=== PATIENT | female | born 1995 | race African-American/Black ===

== ENCOUNTER 2021-05-14 10:18 | Emergency (ER) | payer MEDICAID ==
[~2021-05-14] VITALS: Ht 162.6 cm; Wt 50.0 kg
[2021-05-14 10:56] VITALS: BP 116/73
--- NOTE | 2021-05-14 11:14 | PHYS DOC ---
Past Medical History Past Medical History: Other Additional Past Medical Histor: breast fibroids Past Surgical History: No Surgical History Smoking Status: Never Smoker Alcohol Use: None Drug Use: None Adult General Chief Complaint Chief Complaint: LACERATION/AVULSION HPI HPI The patient is a 25-year-old female who is otherwise healthy and his tetanus is not up-to-date. She presents for evaluation of a superficial 1.5 cm linear laceration to her left hand in the webspace between the thumb and second finger, dorsal aspect. Bleeding is controlled. Wound was sustained just prior to arrival when patient was trying to open a container of orange juice with a knife and cut herself. No other injury during the episode. No therapy for symptoms prior to arrival. Review of Systems Review of Systems A 12 point review of systems was completed and was negative except where noted in HPI above. Current Medications Current Medications Current Medications Medications (Trade) Dose Ordered Sig/Ignacio Start Time Stop Time Status Last Admin Dose Admin Diphtheria/ Tetanus/Acell Pertussis (Boostrix) 0.5 ml ONCE ONCE 05/14/21 11:15 05/14/21 11:16 DC 05/14/21 11:51 0.5 ML Ibuprofen (Motrin) 800 mg 1X ONCE 05/14/21 11:15 05/14/21 11:16 DC 05/14/21 11:19 800 MG Lidocaine/ Epinephrine (LIDOCAINE 1%-EPI 1:100,000 Multi-Dose) 20 ml 1X ONCE 05/14/21 11:15 05/14/21 11:16 DC 05/14/21 11:19 20 ML Allergies Allergies Allergies Coded Allergies Type Severity Reaction Last Updated Verified No Known Drug Allergies 02/24/16 No Physical Exam Physical Exam 25-year-old female appearing nontoxic and in no acute distress. Head is normocephalic and atraumatic. Neck is supple and nontender. Oropharynx is moist. Lungs are clear to auscultation at all stations. There is a normal S1 and S2 without rubs or gallops and capillary refill is appropriate, less than 2 seconds globally. Abdomen is soft, nontender nondistended. Skin is warm and dry without cyanosis, clubbing or edema. Psychiatrically, the patient demonstrates appropriate mood and affect and is alert. Evaluation of the left upper extremity is remarkable for a 1.5 cm linear superficial laceration to the dorsal aspect of the left hand in the webspace between the first and second digits. Wound is hemostatic. Extremity in question including all digits is neurovascularly intact distally with strength out of 5, sensation intact light touch in all nerve distributions, radial pulse 2+, capillary refill less than 2 seconds, hand warm and well-perfused. Current Patient Data Vital Signs Vital Signs Date Time Temp Pulse Resp B/P (MAP) Pulse Ox O2 Delivery O2 Flow Rate FiO2 05/14/21 10:56 98.1 72 16 116/73 (87) 98 Room Air 98.1 EKG EKG [] Radiology/Procedures Radiology/Procedures Indication: [L hand laceration] Procedure: The patient was placed in the appropriate position and lidocaine with epinephrine was instilled around the laceration. The area was then copiously washed out and disinfected. The laceration was closed with four 4-0 ethilon sutures. Total repaired wound length: 1.5cm The patient tolerated the procedure well. Complications: none. Course & Med Decision Making Course & Med Decision Making Laceration repaired with suture as per procedure note. Patient tolerated well. Tetanus updated. Will discharge home with ibuprofen for discomfort and instructions to return to care in 7 to 10 days for suture removal, or before that as needed. Patient understands that if she feels worse instead of better or develops other new symptoms of concern that she should return to the emergenc y department immediately for reevaluation. All questions are answered. Dragon Disclaimer Dragon Disclaimer This electronic medical record was generated, in whole or in part, using a voice recognition dictation system. Departure Departure Impression: Primary Impression: Laceration of left hand without complication, excluding fingers Disposition: 01 HOME / SELF CARE / HOMELESS Condition: IMPROVED Patient Instructions: Laceration Care, Adult Additional Instructions: Follow-up in 7 to 10 days for suture removal. Take an ibuprofen pill every 6 hours as needed for discomfort, with food to prevent stomach upset. You may apply Neosporin up to twice a day to prevent infection. Return to the emergency department right away for worsening symptoms of any kind or with any other new symptoms of concern. Scripts Ibuprofen (Ibu) 600 Mg Tablet 1 TAB PO Q6HRS for 7 Days, #28 TAB 0 Refills Prov: JEREMY SELF MD 05/14/21 Problem Qualifiers Primary Impression: Laceration of left hand without complication, excluding fingers Encounter type: initial encounter Qualified Codes: S61.412A - Laceration without foreign body of left hand, initial encounter JEREMY SELF MD May 14, 2021 11:14
[2021-05-14] MEDS ORDERED: IBUPROFEN 400 MG TABLET. PO ONE (11:15)
[2021-05-14] MEDS ORDERED: DIPHTH,PERTUSS(ACELL),TET TOX 0.5 ML DISP.SYRIN. VAX IM ONE (11:15)
[2021-05-14] MEDS ORDERED: LIDOCAINE 1%/EPI 1:100,000 20 ML VIAL. INJ ONE (11:15)
[2021-05-14] MEDS ORDERED: IBUP-571 PO (12:01)
== END 2021-05-14 12:07 | disposition home or self-care (01) ==
LOC: ER 10:18
DX: S61.412A Laceration without foreign body of left hand, initial encounter (principal); W26.0XXA Contact with knife, initial encounter; Y93.89 Activity, other specified; Y92.89 Other specified places as the place of occurrence of the external cause; Y99.8 Other external cause status
CPT/HCPCS: 12001; 90471; 90715; 99283; J3490

== ENCOUNTER 2021-05-24 12:50 | Emergency (ER) | payer MEDICAID ==
[~2021-05-24] VITALS: Ht 162.6 cm; Wt 52.0 kg
[~2021-05-24 12:50] MED LIST: IBUP-571 PO
[2021-05-24 12:58] VITALS: BP 117/52
[2021-05-24] MEDS ORDERED: PRED50TA PO ×2 (13:21→13:28)
--- NOTE | 2021-05-24 13:21 | PHYS DOC ---
Past Medical History Past Medical History: Other Additional Past Medical Histor: breast fibroids Past Surgical History: No Surgical History Smoking Status: Never Smoker Alcohol Use: None Drug Use: None General Adult EDM: Chief Complaint: ITCHING HPI: HPI: Patient is a 25-year-old female that presents today with rash. Patient states approximately 4 days ago she moved into in a car apartment complex that she had lived in as a child, and she started breaking out in a rash around her neck area and her upper chest area and her face, she said the rash itches. She states she has tried taking [id number] Benadryl for it and that has not helped curb the rash or help with the itching. Patient denies chest pain, shortness of air, throat tightness or fever and chills. Patient is currently eating skittles with no acute distress noted. Review of Systems: Review of Systems: Constitutional: Denies fever or chills. [] Eyes: Denies change in visual acuity. [] HENT: Denies nasal congestion or sore throat. [] Respiratory: Denies cough or shortness of breath. [] Cardiovascular: Denies chest pain or edema. [] GI: Denies abdominal pain, nausea, vomiting, bloody stools or diarrhea. [] : Denies dysuria. [] Musculoskeletal: Denies back pain or joint pain. [] Integument: rash. [] Neurologic: Denies headache, focal weakness or sensory changes. [] Endocrine: Denies polyuria or polydipsia. [] Lymphatic: Denies swollen glands. [] Psychiatric: Denies depression or anxiety. [] Heart Score: C/O Chest Pain: No Risk Factors: Risk Factors: DM, Current or recent (<one month) smoker, HTN, HLP, family history of CAD, obesity. Risk Scores: Score 0 - 3: 2.5% MACE over next 6 weeks - Discharge Home Score 4 - 6: 20.3% MACE over next 6 weeks - Admit for Clinical Observation Score 7 - 10: 72.7% MACE over next 6 weeks - Early Invasive Strategies Allergies: Allergies: Allergies Coded Allergies Type Severity Reaction Last Updated Verified No Known Drug Allergies 05/24/21 No Physical Exam: PE: Constitutional: Well developed, well nourished, no acute distress, non-toxic appearance. [] HENT: Normocephalic, atraumatic, bilateral external ears normal, oropharynx moist, no oral exudates, nose normal. [] Eyes: PERRLA, EOMI, conjunctiva normal, no discharge. [] Neck: Normal range of motion, no tenderness, supple, no stridor. [] Cardiovascular:Heart rate regular rhythm, no murmur [] Lungs & Thorax: Bilateral breath sounds clear to auscultation [] Abdomen: Bowel sounds normal, soft, no tenderness, no masses, no pulsatile masses. [] Skin: Raised urticaric rash noted over the face neck and upper chest area, area is reddened, no warmth is noted, no drainage is noted from the rash. Patient reports it does itch. Back: No tenderness, no CVA tenderness. [] Extremities: No tenderness, no cyanosis, no clubbing, ROM intact, no edema. [] Neurologic: Alert and oriented X 3, normal motor function, normal sensory function, no focal deficits noted. [] Psychologic: Affect normal, judgement normal, mood normal. [] Current Patient Data: Vital Signs: Vital Signs Date Time Temp Pulse Resp B/P (MAP) Pulse Ox O2 Delivery O2 Flow Rate FiO2 05/24/21 12:58 98.2 67 17 117/52 (73) 98 Room Air 98.2 EKG: EKG: [] Radiology/Procedures: Radiology/Procedures: [] Course & Med Decision Making: Course & Med Decision Making Pertinent Labs and Imaging studies reviewed. (See chart for details) Patient is in no acute distress and has no airway compromise, we will treat the patient with oral prednisone, and Pepcid at this time, she took Benadryl just prior to arrival coming to the emergency department. I did recommend for her because she cannot identify a allergen or anything that she came in contact with that was different over the last 4 to 5 days to follow-up with the primary care or clinic for further management of this rash. I did give her strict prec autions to return if she has any airway issues. Patient verbalizes understanding this and agreeable to the plan of care. Leslie Disclaimer: Leslie Disclaimer: This electronic medical record was generated, in whole or in part, using a voice recognition dictation system. Departure Departure Impression: Primary Impression: Urticaria Disposition: 01 HOME / SELF CARE / HOMELESS Condition: STABLE Referrals: NO PCP (PCP) Patient Instructions: Rash Additional Instructions: Prednisone take daily for 5 full days Zevy-kcx-pwludwz Pepcid 20 mg take 1 tablet daily for 10 days Irmz-hdu-uunhxpx Claritin 1 tablet daily for 10 full days Benadryl 1 to 2 tablets every 6 hours as needed for itching and rash. Use with caution may cause drowsiness Follow-up with your primary care physician in 1 to the list of clinics below for further management of this rash Return to the emergency department if you have any increased shortness of breath or increased work of breathing, swelling of your lips face or tongue, or have difficulty swallowing. [facility] [address] [place] [address] [facility] [address] [place] [address] [facility] [address] [facility] [place] [address] [facility] [address] [place] [address] [facility] [address] [place] [address] [address] [address] [place] [address] [facility] [address] [place] [address] [facility] [address] [place] [address] [facility] [address] [place] [address] [facility] [address] [place] [address] Scripts Prednisone (PREDNISONE) 50 Mg Tablet 1 TAB PO DAILY, #5 TAB Prov: ANIBAL LOWRY QUALITATIVE RESEARCHER 05/24/21 ANIBAL LOWRY QUALITATIVE RESEARCHER May 24, 2021 13:21
[2021-05-24] MEDS ORDERED: FAMOTIDINE 20 MG TABLET. PO ONE (13:30)
[2021-05-24] MEDS ORDERED: predniSONE 10 MG TABLET PO ONE (13:30)
== END 2021-05-24 13:56 | disposition home or self-care (01) ==
LOC: ER 12:50
DX: L50.9 Urticaria, unspecified (principal)
CPT/HCPCS: 99283; J7512